=== PATIENT | male | born 1965 | race Caucasian/White ===

== ENCOUNTER → 2020-11-11 | Outpatient (CLI) | payer OTHER ==
[2020-11-09 13:59] VITALS: BP 144/79
[~2020-11-11] MED LIST: LISI40TA6 PO; LORA2TAB89 PO; PANT20TA2 PO; [UNRECOGNIZED DRUG - CODE] PO
--- NOTE | 2020-11-11 13:41 | EKG ---
[facility] [address] [place] [address] Test Date: 2020-11-11 Test Time: 13:31:44 Pat Name: GILMAR SANZ Department: Room: Gender: M Station Superintendent: DELVIS : 1965 Requested By: GALE CARROLL Order Number: [id number] Reading MD: Gómez Campos MD Measurements Intervals [place] Rate: 83 P: -7 MS: 132 QRS: 2 QRSD: 96 T: 3 QT: 376 QTc: 442 Interpretive Statements SINUS RHYTHM Electronically Signed On 11-13-2020 18:54:06 CDT by Gómez Campos MD
== END ==
LOC: SURGPAT 13:13
PROVIDERS: ATTEND Neurological Surgery
DX: Z01.818 Encounter for other preprocedural examination (principal); C71.4 Malignant neoplasm of occipital lobe
CPT/HCPCS: 87641; 93005